=== PATIENT | male | born 1980 | race African-American/Black ===

== ENCOUNTER 2020-09-20 00:27 | Emergency (ER) | payer OTHER ==
[~2020-09-20] VITALS: Ht 177.8 cm; Wt 85.0 kg
--- NOTE | 2020-09-20 01:24 | PHYS DOC ---
Past History Past Medical History: Anxiety, Migraines, Other Additional Past Medical Histor: antisocial d/o, adjustment d/o Past Surgical History: No Surgical History Alcohol Use: None Adult General Chief Complaint Chief Complaint: OVERDOSE HPI HPI Patient is a 39-year-old male who presents from senior care with the senior care guards after taking an unknown substance and becoming unresponsive. Per senior care staff, he had taken something about 9:30 PM and staff found him laying on the floor. States he did have a pulse and was breathing, and had normal color seem too tired to wake up. States that they gave him Narcan, 2 mg which did seem to wake him up but brought him to the emergency department. Patient states he took some but cannot remember what it is that he took. Denies headache, changes in vision, chest pain, shortness of breath, abdominal pain, nausea, vomiting. Patient asked for something to eat and drink. Review of Systems Review of Systems Review of systems otherwise unremarkable except noted in HPI Allergies Allergies Allergies Coded Allergies Type Severity Reaction Last Updated Verified No Known Drug Allergies 09/20/20 No Physical Exam Physical Exam Constitutional: Well developed, well nourished, no acute distress, non-toxic appearance. [] HENT: Normocephalic, atraumatic, bilateral external ears normal, oropharynx moist, no oral exudates, nose normal. [] Eyes: PERRLA, EOMI, conjunctiva normal, no discharge. [] Neck: Normal range of motion, no tenderness, supple, no stridor. [] Cardiovascular:Heart rate regular rhythm, no murmur [] Lungs & Thorax: Bilateral breath sounds clear to auscultation [] Abdomen: soft, no tenderness, no masses, no pulsatile masses. [] Skin: Warm, dry, no erythema, no rash. [] Extremities: No tenderness, no cyanosis, no clubbing, ROM intact, no edema. [] Neurologic: Alert and oriented X 3, normal motor function, normal sensory function, no focal deficits noted. [] Psychologic: Denies SI, HI, hallucinations. Patient states he remembers taking some but cannot remember what it was. Current Patient Data Vital Signs Vital Signs Date Time Temp Pulse Resp B/P (MAP) Pulse Ox O2 Delivery O2 Flow Rate FiO2 09/20/20 00:38 97.6 50 10 115/73 (87) 96 Room Air EKG EKG [] Radiology/Procedures Radiology/Procedures [] Heart Score C/O Chest Pain: No Risk Factors: Risk Factors: DM, Current or recent (<one month) smoker, HTN, HLP, family history of CAD, obesity. Risk Scores: Risk Factors: DM, Current or recent (<one month) smoker, HTN, HLP, family history of CAD, obesity. Course & Med Decision Making Course & Med Decision Making Patient is a 39-year-old male that presents to the emergency department with a chief complaint of overdose on unknown substance which responded to Narcan and the senior care On arrival to the emergency department patient was awake, alert with a GCS of 15. Vital signs not concerning. Physical exam noted above. Placed on monitor with IV access established and IV fluid resuscitation given. Patient asked for something to drink, and was given a Coke which he tolerated well. On reassessment, approximately 5 hours after ingestion and 4 hours after Narcan dose patient still awake alert and oriented and able to take p.o. Otherwise asymptomatic. Discussed all findings with patient advised to cease taking any substances that are not provided by a physician. Advised to follow-up with facility physician first thing in the morning to discuss ED visit. Gave strict return precautions to the ED. Patient grateful, verbalized understanding and agreed with plan of discharge. [] Dragon Disclaimer Dragon Disclaimer This electronic medical record was generated, in whole or in part, using a voice recognition dictation system. Departure Departure: Impression: Primary Impression: Opiate or related narcotic overdose Disposition: 05 DC/TRF OTHER TYPE INSTITUTI Condition: RELEASED IN CUSTODY Referrals: PCP,NO (PCP) Patient Instructions: Narcotic Overdose Additional Instructions: Please read all the attached information. Please do not take any substances that are not prescribed by physician. Please follow-up with your senior care physician first thing in the morning to discuss your ED visit and need for any further evaluation and treatment. Please come back to the ED with new or concerning symptoms. LEMUEL CLEMONS MD Sep 20, 2020 01:24
[2020-09-20 01:59] VITALS: BP 150/97
== END 2020-09-20 02:00 | disposition home or self-care (01) ==
LOC: EEVIPCON 00:27 → ER 00:27
DX: T50.901A Poisoning by unspecified drugs, medicaments and biological substances, accidental (unintentional), initial encounter (principal); G43.909 Migraine, unspecified, not intractable, without status migrainosus; F41.9 Anxiety disorder, unspecified; Y92.89 Other specified places as the place of occurrence of the external cause
CPT/HCPCS: 99283